=== PATIENT | female | born 1945 | race African-American/Black ===

== ENCOUNTER 2016-11-23 08:30 | Emergency (ER) | payer OTHER ==
[~2016-11-23] VITALS: Ht 160 cm; Wt 76.0 kg
[~2016-11-23 08:30] MED LIST: ASPIRIN81 M1 PO; ASPIRIN81 M2 PO; ATENOLOL; ATENOLOL25 M1 PO; ATENOLOL25 MG PO; CLARITIN10 M3 PO; CRESTOR20 MG PO; Ecotrin PO; GLUCOPHAGE500 MG PO; IMDUR30 MG PO; LASIX20 MG PO; METFORMIN HCL500 M1 PO; NAPROSYN-EC500 MG PO; NORVASC5 M1 PO; NORVASC5 MG PO; RANITIDINE HCL150 M1 PO; ZANTAC150 M1 PO; ZITHROMAX500 MG PO; ZYRTEC10 M3 PO
[2016-11-23 09:30] LABS: ADD MIUA? YES; BILIRUBIN NEGATIVE; BLOOD SMALL; COLOR YELLOW ((YELLOW)); GLUCOSE (STRIP) NEGATIVE; KETONES NEGATIVE; LEUKOCYTES LARGE; NITRITE NEGATIVE; PH, URINE 5.5 (5-8); PROTEIN (STRIP) NEGATIVE; SPECIFIC GRAVITY 1.019 (1.000-1.030); UROBILINOGEN 0.2 MG/DL (0.2-1.0)
[2016-11-23 09:47] LABS: RED BLOOD CELLS RARE /HPF (0-5); WHITE BLOOD CELLS 15-20 /HPF (0-5)
[2016-11-23 09:48] LABS: BACTERIA RARE; CASTS NONE SEEN /LPF; CRYSTALS NONE SEEN; EPITHELIAL CELLS 1+; MUCUS NONE SEEN; UCUL ADDED? NO
[2016-11-23 10:43] LABS: EOSINOPHIL (%) 2.4 % (0-5); EOSINOPHIL COUNT 0.2 K/uL (0-0.3); HEMATOCRIT 39.7 % (36.0-46.0); IMMATURE GRANULOCYTE (%) 0.2 % (0.0-0.7); IMMATURE GRANULOCYTE COUNT 0.1 K/uL; LYMPHOCYTE COUNT 1.8 K/uL (1.0-2.8); MCH 30.6 PG (29.0-34.0); MCHC 34.3 G/DL (30.0-36.0); MCV 89.2 FL (83-99); MEAN PLAT.VOLUME 10.4 uM^3 (9.5-12.4); MONOCYTE (%) 8.3 % (3-12); MONOCYTE COUNT 0.5 K/uL (0-0.8); NEUTROPHIL (%) 60.3 % (45-76); NEUTROPHIL COUNT 3.7 K/uL (1.8-6.4); PLATELET COUNT 195 K/uL (156-360); RBC DIS.WIDTH-CV 14.3 % (11.8-14.6); RBC DIS.WIDTH-SD 45.6 % (39-53); RED BLOOD COUNT 4.45 M/uL (3.80-5.20); WHITE BLOOD COUNT 6.2 K/uL (4.1-10.2)
[2016-11-23 10:56] LABS: CHLORIDE 106 mEq/L (99-109); POTASSIUM 3.8 mEq/L (3.7-5.4); SODIUM 141 mEq/L (136-147)
[2016-11-23 10:58] LABS: GLUCOSE 109 mg/dL (70-99)
[2016-11-23 11:00] LABS: ANION GAP 10 MEQ/L (2-14); TOTAL BILIRUBIN 0.7 mg/dL (0.0-1.0)
[2016-11-23 11:02] LABS: ALKALINE PHOSPHATASE 69 IU/L (3-129); GFR ESTIMATE (CALCULATED) > 59 mL/min/
[2016-11-23 11:03] LABS: UREA NITROGEN (BUN) 9 mg/dL (9-23)
[2016-11-23 14:26] VITALS: BP 156/66
[2016-11-24] MEDS ORDERED: PROBIOTIC1 EAC1 PO (08:08)
[2016-11-24] MEDS ORDERED: DAILY VALUE1 EACH PO (08:08)
[2016-11-25] MEDS ORDERED: [UNRECOGNIZED DRUG - OTHER] PO (09:01)
[2016-11-25] MEDS ORDERED: ALIVE WOMEN'S1 EAC1 PO (09:02)
== END 2016-11-23 14:48 | disposition home or self-care (01) ==
LOC: EME 08:30
PROVIDERS: Emergency Medicine
DX: N39.0 Urinary tract infection, site not specified (principal); R10.9 Unspecified abdominal pain; Z87.440 Personal history of urinary (tract) infections; I25.2 Old myocardial infarction; E11.9 Type 2 diabetes mellitus without complications; I10 Essential (primary) hypertension; E78.5 Hyperlipidemia, unspecified; Z79.84 Long term (current) use of oral hypoglycemic drugs; Z79.82 Long term (current) use of aspirin; Z98.61 Coronary angioplasty status; Z87.891 Personal history of nicotine dependence
CPT/HCPCS: 74176; 80053; 81003; 83605; 85025; 87077; 87086; 87186; 99281; 99284; J3260; J7050

== ENCOUNTER 2017-03-17 08:32 | Emergency (ER) | payer OTHER ==
[~2017-03-17] VITALS: Ht 160 cm; Wt 75.8 kg
[~2017-03-17 08:32] MED LIST changes: +ALIVE WOMEN'S1 EAC1 PO; +DAILY VALUE1 EACH PO; +PROBIOTIC1 EAC1 PO; +[UNRECOGNIZED DRUG - OTHER] PO
[2017-03-17 09:30] LABS: EOSINOPHIL (%) 2.5 % (0-5); EOSINOPHIL COUNT 0.1 K/uL (0-0.3); IMMATURE GRANULOCYTE (%) 0.2 % (0.0-0.7); INSTRUMENT ABS NEUTROPHIL CT 2.7 K/uL; LYMPHOCYTE COUNT 1.5 K/uL (1.0-2.8); MCH 29.9 PG (29.0-34.0); MCHC 33.3 G/DL (30.0-36.0); MCV 89.6 FL (83-99); MONOCYTE (%) 9.9 % (3-12); MONOCYTE COUNT 0.5 K/uL (0-0.8); NEUTROPHIL (%) 56.4 % (45-76); NEUTROPHIL COUNT 2.7 K/uL (1.8-6.4); PLATELET COUNT 200 K/uL (156-360); RBC DIS.WIDTH-CV 14.3 % (11.8-14.6); RBC DIS.WIDTH-SD 46.2 % (39-53); RED BLOOD COUNT 4.69 M/uL (3.80-5.20); WHITE BLOOD COUNT 4.8 K/uL (4.1-10.2)
[2017-03-17 09:39] LABS: CHLORIDE 110 mEq/L (99-109); POTASSIUM 4.3 mEq/L (3.7-5.4); SODIUM 141 mEq/L (136-147)
[2017-03-17 09:41] LABS: D-DIMER ELISA 0.45 mg/L FEU (< 0.57)
[2017-03-17 09:42] LABS: GLUCOSE 125 mg/dL (70-99)
[2017-03-17 09:43] LABS: ANION GAP 12 MEQ/L (2-14)
[2017-03-17 09:44] LABS: TOTAL BILIRUBIN 0.8 mg/dL (0.0-1.0)
[2017-03-17 09:45] LABS: ALKALINE PHOSPHATASE 62 IU/L (3-129); GFR ESTIMATE (CALCULATED) > 59 mL/min/
[2017-03-17 09:47] LABS: UREA NITROGEN (BUN) 10 mg/dL (9-23)
[2017-03-17 09:52] LABS: TROP-I INTERPRETATION NEGATIVE; TROPONIN-I < 0.01 ng/mL (0.0-0.30)
[2017-03-17 12:27] LABS: TROP-I INTERPRETATION NEGATIVE; TROPONIN-I < 0.01 ng/mL (0.0-0.30)
[2017-03-17] MEDS ORDERED: ULTRAM50 MG PO (12:44)
[2017-03-17] MEDS ORDERED: ZYRTEC10 M3 PO (12:55)
[2017-03-17] MEDS ORDERED: DIFLUCAN150 MG PO (12:55)
[2017-03-17] MEDS ORDERED: BIAXIN500 MG PO (12:55)
[2017-03-17 13:21] VITALS: BP 135/8
== END 2017-03-17 13:24 | disposition home or self-care (01) ==
LOC: EME 08:32
PROVIDERS: Emergency Medicine
DX: R07.89 Other chest pain (principal); M25.561 Pain in right knee; R51 Headache; I10 Essential (primary) hypertension; G89.29 Other chronic pain; E11.9 Type 2 diabetes mellitus without complications; Z79.84 Long term (current) use of oral hypoglycemic drugs; I25.10 Atherosclerotic heart disease of native coronary artery without angina pectoris; I25.2 Old myocardial infarction; Z95.5 Presence of coronary angioplasty implant and graft; K21.9 Gastro-esophageal reflux disease without esophagitis; E78.5 Hyperlipidemia, unspecified; E78.00 Pure hypercholesterolemia, unspecified; J32.9 Chronic sinusitis, unspecified; M19.90 Unspecified osteoarthritis, unspecified site; Z79.82 Long term (current) use of aspirin; Z87.891 Personal history of nicotine dependence
CPT/HCPCS: 71010; 80053; 84484; 85025; 85379; 93005; 99281; 99285

== ENCOUNTER 2017-08-16 19:18 | Emergency (ER) | payer OTHER ==
[~2017-08-16] VITALS: Ht 160 cm; Wt 74.9 kg
[~2017-08-16 19:18] MED LIST changes: +BIAXIN500 MG PO; +DIFLUCAN150 MG PO; +ULTRAM50 MG PO
[2017-08-16 20:07] LABS: HEMATOCRIT 42.3 % (36.0-46.0); MCH 30.1 PG (29.0-34.0); MCHC 34.5 G/DL (30.0-36.0); MCV 87.2 FL (83-99); MEAN PLAT.VOLUME 10.3 uM^3 (9.5-12.4); PLATELET COUNT 196 K/uL (156-360); RBC DIS.WIDTH-CV 13.3 % (11.8-14.6); RBC DIS.WIDTH-SD 42.5 % (39-53); RED BLOOD COUNT 4.85 M/uL (3.80-5.20); WHITE BLOOD COUNT 5.2 K/uL (4.1-10.2)
[2017-08-16 20:18] LABS: CHLORIDE 107 mEq/L (99-109); SODIUM 140 mEq/L (136-147)
[2017-08-16 20:19] LABS: GLUCOSE 108 mg/dL (70-99)
[2017-08-16 20:21] LABS: ANION GAP 10 MEQ/L (2-14)
[2017-08-16 20:23] LABS: GFR ESTIMATE (CALCULATED) > 59 mL/min/
[2017-08-16 20:24] LABS: UREA NITROGEN (BUN) 14 mg/dL (9-23)
[2017-08-16 20:28] LABS: TROP-I INTERPRETATION NEGATIVE; TROPONIN-I < 0.01 ng/mL (0.0-0.30)
[2017-08-16 23:50] LABS: D-DIMER ELISA < 150.00 ng/mLDDU (<230)
[2017-08-17 02:36] LABS: TROP-I INTERPRETATION NEGATIVE; TROPONIN-I < 0.01 ng/mL (0.0-0.30)
[2017-08-17 03:35] VITALS: BP 133/81
== END 2017-08-17 03:46 | disposition home or self-care (01) ==
LOC: EME 19:18
PROVIDERS: Emergency Medicine
DX: R00.2 Palpitations (principal); R06.02 Shortness of breath; I25.2 Old myocardial infarction; Z98.61 Coronary angioplasty status; E11.9 Type 2 diabetes mellitus without complications; I10 Essential (primary) hypertension; E78.5 Hyperlipidemia, unspecified; Z79.84 Long term (current) use of oral hypoglycemic drugs; Z79.82 Long term (current) use of aspirin; Z87.891 Personal history of nicotine dependence
CPT/HCPCS: 71020; 80048; 84484; 85027; 85379; 93005; 99281; 99284; J1100

== ENCOUNTER 2018-06-08 07:23 | Emergency (ER) | payer OTHER ==
[~2018-06-08] VITALS: Ht 160 cm; Wt 75.1 kg
[2018-06-08 08:18] LABS: HEMOGLOBIN 13.8 G/DL (11.9-15.5); MCH 31.4 PG (29.0-34.0); MCHC 35.4 G/DL (30.0-36.0); MCV 88.8 FL (83-99); PLATELET COUNT 218 K/uL (156-360); RBC DIS.WIDTH-CV 13.7 % (11.8-14.6); RBC DIS.WIDTH-SD 44.8 % (39-53); RED BLOOD COUNT 4.39 M/uL (3.80-5.20); WHITE BLOOD COUNT 5.8 K/uL (4.1-10.2)
[2018-06-08 08:38] LABS: TROP-I INTERPRETATION NEGATIVE; TROPONIN-I < 0.01 ng/mL (0.0-0.30)
[2018-06-08 08:49] LABS: CHLORIDE 104 MEQ/L (99-109); GFR ESTIMATE (CALCULATED) > 59 mL/min/; GLUCOSE 145 mg/dL (70-99); POTASSIUM 3.9 MEQ/L (3.7-5.4); SODIUM 139 MEQ/L (136-147); UREA NITROGEN (BUN) 18 mg/dL (9-23)
[2018-06-08 10:40] LABS: TROP-I INTERPRETATION NEGATIVE; TROPONIN-I < 0.01 ng/mL (0.0-0.30)
[2018-06-08] MEDS ORDERED: MOTRIN800 MG PO (11:10)
[2018-06-08 11:41] VITALS: BP 119/61
== END 2018-06-08 11:43 | disposition home or self-care (01) ==
LOC: EME 07:23
PROVIDERS: Emergency Medicine
DX: R07.89 Other chest pain (principal); R05 Cough; I10 Essential (primary) hypertension; E11.9 Type 2 diabetes mellitus without complications; E78.5 Hyperlipidemia, unspecified; I25.2 Old myocardial infarction; Z95.1 Presence of aortocoronary bypass graft; Z79.82 Long term (current) use of aspirin; Z88.2 Allergy status to sulfonamides; Z87.891 Personal history of nicotine dependence
CPT/HCPCS: 71046; 80048; 84484; 85027; 93005; 99281; 99284